=== PATIENT | male | born 1935 | race Caucasian/White ===

== ENCOUNTER 2022-02-25 14:06 | Inpatient (IN) | payer MEDICARE, OTHER ==
[~2022-02-25] VITALS: Ht 185.4 cm; Wt 125.8 kg
[2022-02-25] MEDS ORDERED: ASPI-618 PO (15:11)
[2022-02-25] MEDS ORDERED: NAPH1POW3 PO (15:11)
[2022-02-25] MEDS ORDERED: RIVA20TA PO (15:11)
[2022-02-25] MEDS ORDERED: MEMA10TA PO (15:11)
[2022-02-25] MEDS ORDERED: MAG30ORA PO (15:11)
[2022-02-25] MEDS ORDERED: MAGN400O6 PO (15:11)
[2022-02-25] MEDS ORDERED: FURO-152 PO (15:11)
[2022-02-25] MEDS ORDERED: METO50TA16 PO (15:11)
[2022-02-25] MEDS ORDERED: LOSA25TA3 PO (15:11)
[2022-02-25] MEDS ORDERED: PANT40TA2 PO (15:11)
[2022-02-25] MEDS ORDERED: ESCI5TAB PO (15:11)
[2022-02-25] MEDS ORDERED: DONE10TA11 PO (15:11)
[2022-02-25] MEDS ORDERED: METF-441 PO (15:11)
[2022-02-25] MEDS ORDERED: AZIT500V8 IV (15:12)
[2022-02-25] MEDS ORDERED: CEFT2VIA14 IV (15:12)
[2022-02-25] MEDS ORDERED: ONDA4VIA52 IV (17:22)
[2022-02-25] MEDS ORDERED: BLOO-668 IN (17:22)
[2022-02-25] MEDS ORDERED: ACET-2154 PO (17:22)
[2022-02-25] MEDS ORDERED: DEXTROSE 50% 50 ML DISP.SYRIN IV PRN (17:45)
[2022-02-25] MEDS ORDERED: HYDROCODONE/APAP 5-325MG TABLET PO PRN (17:45)
[2022-02-25 18:00] VITALS: BP 148/80
[2022-02-25] MEDS ORDERED: ACETAMINOPHEN 325 MG TABLET PO PRN (18:30)
[2022-02-25] MEDS ORDERED: ONDANSETRON HCL 4 MG TABLET PO PRN (18:30)
[2022-02-25] MEDS ORDERED: MAGNESIUM HYDROXIDE 30 ML LIQUID UDC PO PRN (18:30)
[2022-02-25] MEDS ORDERED: MAG HYDROX/AL HYDROX/SIMETH 30 ML LIQUID UDC PO PRN (18:30)
--- NOTE | 2022-02-25 18:31 | NUR ---
[facility] noted with congestion, wet cough, o2 saturation 94 at room air, noted with pitting edema to both upper and lower extremities, noted with redness to perineal area and to the buttocks.
[2022-02-25] MEDS: AZITHROMYCIN 250 MG TABLET PO SCH (19:14)
[2022-02-25] MEDS: MEMANTINE HCL 5 MG TABLET PO SCH (19:14)
[2022-02-25] MEDS: RIVAROXABAN 10 MG TABLET PO SCH (19:17)
[2022-02-25 20:00] VITALS: BP 166/81
[2022-02-25] MEDS: DONEPEZIL 10 MG TABLET PO SCH (20:18)
[2022-02-25] MEDS: BLOOD SUGAR DIAGNOSTIC 1 EACH STRIP VI SCH (20:18)
[2022-02-25] MEDS: CLOTRIMAZOLE 1% CREAM 30 GM TUBE TOP SCH (20:19)
--- NOTE | 2022-02-25 20:20 | NUR ---
BP 166/81. Denies any s/s of HTN. Informed MD about the BP. No new medication ordered just to monitor patient's BP. Will endorsed to AM nurse.
[2022-02-25] MEDS: INSULIN REGULAR, HUMAN 300 UNIT/3 ML VIAL SQ PRN (20:22)
[2022-02-25] MEDS ORDERED: BLOOD SUGAR DIAGNOSTIC 1 EACH STRIP VI SCH (21:00)
[2022-02-25] MEDS: NEUTRA PHOS PACKET PO SCH (22:00)
[2022-02-26 04:00] VITALS: BP 156/75
[2022-02-26] MEDS: BLOOD SUGAR DIAGNOSTIC 1 EACH STRIP VI SCH ×4 (06:35→20:31)
[2022-02-26] MEDS: NEUTRA PHOS PACKET PO SCH ×3 (06:36→21:46)
[2022-02-26] MEDS: PANTOPRAZOLE SODIUM 40 MG TABLET.DR PO SCH (06:36)
[2022-02-26 08:00] VITALS: BP 147/78
[2022-02-26] MEDS ORDERED: Medication Not On Formulary EA (Escitalopram Oxalate (Lexapro) 5 MG) PO SCH (09:00)
[2022-02-26] MEDS: FUROSEMIDE 20 MG TABLET PO SCH (09:27)
[2022-02-26] MEDS: LOSARTAN POTASSIUM 25 MG TABLET PO SCH (09:27)
[2022-02-26] MEDS: METFORMIN HCL 850 MG TABLET PO SCH ×2 (09:27→17:25)
[2022-02-26] MEDS: ASPIRIN EC 81 MG TABLET.DR PO SCH (09:27)
[2022-02-26] MEDS: ESCITALOPRAM OXALATE 10 MG TABLET PO SCH (09:28)
[2022-02-26] MEDS: CLOTRIMAZOLE 1% CREAM 30 GM TUBE TOP SCH (09:32)
[2022-02-26] MEDS: INSULIN REGULAR, HUMAN 300 UNIT/3 ML VIAL SQ PRN ×4 (09:40→20:32)
--- NOTE | 2022-02-26 14:00 | NUR ---
Remain AAOx4 [place] Islander Speaking with little Slovak. Admitted for Pneumonia. with some cough no SOB or respiratory distress noted at room air, continue on ATB therapy with Zithromax 500 mg PO no A/R noted . All needs attended. No acute distress noted. Will continue to monitor patient for comfort and safety. Incontinent of bowel and bladder. Uses urinal when voiding. No BM noted at this time. Kept comfortable.
[2022-02-26] MEDS: METOPROLOL TARTRATE 50 MG TABLET PO SCH ×2 (14:01→20:33)
[2022-02-26 16:00] VITALS: BP 144/82
[2022-02-26] MEDS ORDERED: RIVAROXABAN 10 MG TABLET PO SCH (17:00)
[2022-02-26] MEDS: RIVAROXABAN 10 MG TABLET PO SCH (17:27)
[2022-02-26] MEDS: MEMANTINE HCL 5 MG TABLET PO SCH (17:30)
[2022-02-26] MEDS: AZITHROMYCIN 250 MG TABLET PO SCH (17:40)
[2022-02-26] MEDS: methylPREDNISolone SOD SUCC 40 MG/ML VIAL IV SCH ×2 (19:21→20:42)
[2022-02-26 20:00] VITALS: BP 145/83
[2022-02-26] MEDS: DONEPEZIL 10 MG TABLET PO SCH (20:33)
[2022-02-26] MEDS: CLOTRIMAZOLE/BETAMET DIPROP CREAM 15 GM TUBE TOP SCH (20:34)
[2022-02-27] MEDS: LOSARTAN POTASSIUM 25 MG TABLET PO SCH (04:26)
--- NOTE | 2022-02-27 04:26 | NUR ---
Bp 171/82. Denies any s/s of HTN. Losartan potassium 25 mg 1 tab oral given earlier as scheduled for elevated BP. Will recheck after an hour. Will monitor.
[2022-02-27 04:31] VITALS: BP 171/82
[2022-02-27] MEDS: NEUTRA PHOS PACKET PO SCH ×3 (06:06→21:07)
[2022-02-27] MEDS: PANTOPRAZOLE SODIUM 40 MG TABLET.DR PO SCH (06:06)
[2022-02-27] MEDS: BLOOD SUGAR DIAGNOSTIC 1 EACH STRIP VI SCH ×4 (06:14→21:02)
--- NOTE | 2022-02-27 06:24 | NUR ---
BP rechecked 138/91. Chest congestion noted, Coughing non productive.
[2022-02-27 07:05] LABS: MEAN CORPUSCULAR HEMOGLOBIN 30.1 uug (23.8-33.4); PLATELET COUNT (AUTO) 184 K/uL (152-348)
[2022-02-27 07:21] LABS: MAGNESIUM 1.9 mg/dL (1.8-2.4); PHOSPHOROUS 3.7 mg/dL (2.5-4.9); POTASSIUM 4.8 mmol/L (3.5-5.1)
[2022-02-27 07:56] VITALS: BP 138/72
[2022-02-27] MEDS: INSULIN REGULAR, HUMAN 300 UNIT/3 ML VIAL SQ PRN ×4 (08:03→21:07)
[2022-02-27] MEDS: methylPREDNISolone SOD SUCC 40 MG/ML VIAL IV SCH (09:13)
[2022-02-27] MEDS: FUROSEMIDE 20 MG TABLET PO SCH (09:14)
[2022-02-27] MEDS: ASPIRIN EC 81 MG TABLET.DR PO SCH (09:14)
[2022-02-27] MEDS: ESCITALOPRAM OXALATE 10 MG TABLET PO SCH (09:14)
[2022-02-27] MEDS: METFORMIN HCL 850 MG TABLET PO SCH ×2 (09:14→17:45)
[2022-02-27] MEDS: METOPROLOL TARTRATE 50 MG TABLET PO SCH ×2 (09:15→20:47)
[2022-02-27] MEDS: CLOTRIMAZOLE/BETAMET DIPROP CREAM 15 GM TUBE TOP SCH ×2 (09:29→20:51)
--- NOTE | 2022-02-27 11:55 | NUR ---
Received patient resting in bed AAOx 3 Tristanian speaking with little Australian. Up in W/C with PT All needs attended. No acute distress noted, incontinent of bowel and bladder c/O of feeling constipated medicated with MOM as ordered. Uses urinal when voiding at times. All do Meds given as ordered. no c/o of pain, AccuStick at 1130 BS 448mg/dl at this time Insulin given as per sliding scale 10 units if > 400 and notified MD Alejo Celeste will continue to monitor closely, Kept comfortable.
[2022-02-27 16:04] VITALS: BP 168/69
[2022-02-27] MEDS: GLUCERNA SHAKE VANILLA 237 ML CAN PO SCH (17:53)
[2022-02-27] MEDS: MEMANTINE HCL 5 MG TABLET PO SCH (17:56)
[2022-02-27] MEDS: RIVAROXABAN 10 MG TABLET PO SCH (17:56)
[2022-02-27] MEDS: AZITHROMYCIN 250 MG TABLET PO SCH (17:57)
[2022-02-27 20:04] VITALS: BP 140/81
[2022-02-27] MEDS: DONEPEZIL 10 MG TABLET PO SCH (20:46)
[2022-02-27] MEDS ORDERED: methylPREDNISolone SOD SUCC 40 MG/ML VIAL IV SCH (21:00)
[2022-02-28 04:21] VITALS: BP 132/71
--- NOTE | 2022-02-28 05:03 | NUR ---
Patient slept on and off during the shift, chest congestion noted with episodes of non productive cough ,no complaint of pain, no SOB respiration even and unlabored sat 94% at room air. Compliant with medications.frequent visuals checks done, incontinent of bowel and bladder kept clean and dry Lotrisone cream applied as ordered.safety measures in place, bed in low position, alarms personnel analyst light and all frequent items needed it within reached.
[2022-02-28] MEDS: PANTOPRAZOLE SODIUM 40 MG TABLET.DR PO SCH (06:40)
[2022-02-28] MEDS: NEUTRA PHOS PACKET PO SCH ×3 (06:40→23:08)
[2022-02-28] MEDS: BLOOD SUGAR DIAGNOSTIC 1 EACH STRIP VI SCH ×4 (06:48→20:44)
[2022-02-28] MEDS: INSULIN REGULAR, HUMAN 300 UNIT/3 ML VIAL SQ PRN ×4 (08:44→20:49)
[2022-02-28 08:54] VITALS: BP 144/80
[2022-02-28] MEDS: ASPIRIN EC 81 MG TABLET.DR PO SCH (09:11)
[2022-02-28] MEDS: methylPREDNISolone SOD SUCC 40 MG/ML VIAL IV SCH (09:11)
[2022-02-28] MEDS: ESCITALOPRAM OXALATE 10 MG TABLET PO SCH (09:11)
[2022-02-28] MEDS: METOPROLOL TARTRATE 50 MG TABLET PO SCH ×2 (09:12→20:40)
[2022-02-28] MEDS: METFORMIN HCL 850 MG TABLET PO SCH ×2 (09:29→17:01)
[2022-02-28] MEDS: FUROSEMIDE 20 MG TABLET PO SCH (09:29)
[2022-02-28] MEDS: LOSARTAN POTASSIUM 25 MG TABLET PO SCH (09:30)
[2022-02-28] MEDS: CLOTRIMAZOLE/BETAMET DIPROP CREAM 15 GM TUBE TOP SCH ×2 (09:30→20:41)
[2022-02-28] MEDS: GLUCERNA SHAKE VANILLA 237 ML CAN PO SCH ×2 (09:30→16:55)
--- NOTE | 2022-02-28 10:16 | NUR ---
INDIVIDUALIZED PLAN OF CARE
[2022-02-28 15:44] VITALS: BP 147/77
[2022-02-28] MEDS: RIVAROXABAN 10 MG TABLET PO SCH (17:01)
[2022-02-28] MEDS: MEMANTINE HCL 5 MG TABLET PO SCH (17:03)
[2022-02-28] MEDS: AZITHROMYCIN 250 MG TABLET PO SCH (17:53)
--- NOTE | 2022-02-28 19:04 | NUR ---
no events noted during shift, patient is tolerating PT, OT well. no acute distress noted
[2022-02-28 20:04] VITALS: BP 135/71
[2022-02-28] MEDS: DONEPEZIL 10 MG TABLET PO SCH (20:40)
[2022-03-01 04:38] VITALS: BP 137/65
[2022-03-01] MEDS: NEUTRA PHOS PACKET PO SCH ×3 (06:26→21:28)
[2022-03-01] MEDS: PANTOPRAZOLE SODIUM 40 MG TABLET.DR PO SCH (06:27)
[2022-03-01] MEDS: BLOOD SUGAR DIAGNOSTIC 1 EACH STRIP VI SCH ×4 (06:31→21:01)
[2022-03-01 07:07] LABS: CREATININE 0.9 mg/dL (0.6-1.3); POTASSIUM 4.5 mmol/L (3.5-5.1)
[2022-03-01] MEDS: LOSARTAN POTASSIUM 25 MG TABLET PO SCH (08:17)
[2022-03-01] MEDS: GLUCERNA SHAKE VANILLA 237 ML CAN PO SCH ×2 (08:18→16:54)
[2022-03-01] MEDS: ESCITALOPRAM OXALATE 10 MG TABLET PO SCH (08:18)
[2022-03-01] MEDS: FUROSEMIDE 20 MG TABLET PO SCH (08:18)
[2022-03-01] MEDS: ASPIRIN EC 81 MG TABLET.DR PO SCH (08:18)
[2022-03-01] MEDS: METOPROLOL TARTRATE 50 MG TABLET PO SCH ×2 (08:18→20:52)
[2022-03-01] MEDS: INSULIN REGULAR, HUMAN 300 UNIT/3 ML VIAL SQ PRN ×4 (08:20→21:04)
[2022-03-01] MEDS: METFORMIN HCL 850 MG TABLET PO SCH ×2 (08:29→16:54)
[2022-03-01] MEDS: CLOTRIMAZOLE/BETAMET DIPROP CREAM 15 GM TUBE TOP SCH ×2 (08:29→20:53)
--- NOTE | 2022-03-01 08:30 | NUR ---
inserted 22g iv on left hand, good blood return noted. denies pain.
[2022-03-01] MEDS: methylPREDNISolone SOD SUCC 40 MG/ML VIAL IV SCH (08:42)
--- NOTE | 2022-03-01 09:17 | NUR ---
received pt in bed awake and oriented x2. no resp distress. denies pain. pitting edema noted more on right arm than left. pt is pleasant. bed at lowest and locked, siderails up call light in reach. needs attended. will cont to observe.
[2022-03-01] MEDS ORDERED: methylPREDNISolone 4 MG TABLET (DAY#1) PO ONE (11:30)
[2022-03-01] MEDS ORDERED: methylPREDNISolone 1 PACK TAB.DS.PK [4MG TAB] PO ONE (11:30)
[2022-03-01] MEDS ORDERED: methylPREDNISolone 4 MG TABLET (DAY#1 PC LUNCH) PO ONE (12:30)
[2022-03-01] MEDS: RIVAROXABAN 10 MG TABLET PO SCH (16:54)
[2022-03-01] MEDS: MEMANTINE HCL 5 MG TABLET PO SCH (17:07)
[2022-03-01] MEDS ORDERED: methylPREDNISolone 4 MG TABLET (DAY#1, PC DINNER) PO ONE (17:30)
[2022-03-01] MEDS: AZITHROMYCIN 250 MG TABLET PO SCH (17:53)
--- NOTE | 2022-03-01 18:08 | NUR ---
noted with intermittent productive cough, unable to cough out secretions. encouraged fluids as tolerated. no adverse reactions from atb zithromax noted. kept comfortable needs attended.
[2022-03-01 20:46] VITALS: BP 133/74
[2022-03-01] MEDS: DONEPEZIL 10 MG TABLET PO SCH (20:52)
[2022-03-01] MEDS ORDERED: methylPREDNISolone 4 MG TABLET (DAY#1, HS) PO ONE (21:00)
[2022-03-02 04:37] VITALS: BP 140/69
--- NOTE | 2022-03-02 05:29 | NUR ---
Pt slept throughout the night. HOB elevated. Complaint with medication and care. NPO status at midnight. No signs of acute distress. Call lights within reach. Safety measures maintained.
[2022-03-02] MEDS: NEUTRA PHOS PACKET PO SCH ×3 (06:00→21:12)
[2022-03-02] MEDS: PANTOPRAZOLE SODIUM 40 MG TABLET.DR PO SCH (06:06)
[2022-03-02] MEDS: BLOOD SUGAR DIAGNOSTIC 1 EACH STRIP VI SCH ×4 (06:30→20:56)
[2022-03-02] MEDS ORDERED: methylPREDNISolone 4 MG TABLET (DAY#2, ACB) PO ONE (07:30)
[2022-03-02 08:00] VITALS: BP 153/93
[2022-03-02] MEDS: METOPROLOL TARTRATE 50 MG TABLET PO SCH ×2 (09:00→20:51)
[2022-03-02] MEDS: GLUCERNA SHAKE VANILLA 237 ML CAN PO SCH ×2 (09:00→17:07)
[2022-03-02] MEDS: FUROSEMIDE 20 MG TABLET PO SCH (09:00)
[2022-03-02] MEDS: ESCITALOPRAM OXALATE 10 MG TABLET PO SCH (09:00)
[2022-03-02] MEDS: ASPIRIN EC 81 MG TABLET.DR PO SCH (09:00)
[2022-03-02] MEDS: LOSARTAN POTASSIUM 25 MG TABLET PO SCH (09:00)
[2022-03-02] MEDS: METFORMIN HCL 850 MG TABLET PO SCH ×2 (09:00→17:07)
[2022-03-02] MEDS: CLOTRIMAZOLE/BETAMET DIPROP CREAM 15 GM TUBE TOP SCH ×2 (09:34→20:53)
--- NOTE | 2022-03-02 09:45 | NUR ---
Pt remain NPO status since midnight all schedule 0900 Meds not given do to NPO as pr MD ordered . No signs of acute distress noted was pick by 2 OR nurses for EGD procedure with GI DR Fairbanks. Safety measures maintained.
--- NOTE | 2022-03-02 11:30 | NUR ---
Pt came back accompany by the OR nurse ORTIZ Plascencia4. EGD procedure with GI DR Fairbanks was done ,normal Duodenum and normal esophagus reported also PT had a. 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 Safety measures maintained.
[2022-03-02] MEDS: INSULIN REGULAR, HUMAN 300 UNIT/3 ML VIAL SQ PRN ×3 (12:07→21:10)
[2022-03-02] MEDS ORDERED: methylPREDNISolone 4 MG TABLET (DAY#2, PC LUNCH) PO ONE (12:30)
[2022-03-02 16:44] VITALS: BP 150/80
[2022-03-02] MEDS: RIVAROXABAN 10 MG TABLET PO SCH (17:11)
[2022-03-02] MEDS: MEMANTINE HCL 5 MG TABLET PO SCH (17:14)
[2022-03-02] MEDS ORDERED: methylPREDNISolone 4 MG TABLET (DAY#2, PC DINNER) PO ONE (17:30)
[2022-03-02 20:21] VITALS: BP 136/77
[2022-03-02] MEDS: DONEPEZIL 10 MG TABLET PO SCH (20:51)
[2022-03-02] MEDS ORDERED: methylPREDNISolone 4 MG TABLET (DAY#2, HS) PO ONE (21:00)
[2022-03-03 04:52] VITALS: BP 137/80
[2022-03-03] MEDS: BLOOD SUGAR DIAGNOSTIC 1 EACH STRIP VI SCH ×4 (05:55→20:31)
[2022-03-03] MEDS: PANTOPRAZOLE SODIUM 40 MG TABLET.DR PO SCH (05:56)
[2022-03-03] MEDS: NEUTRA PHOS PACKET PO SCH ×3 (05:56→21:47)
[2022-03-03] MEDS ORDERED: methylPREDNISolone 4 MG TABLET (DAY#3, ACB) PO ONE (07:30)
[2022-03-03 08:00] VITALS: BP 128/70
[2022-03-03] MEDS: ESCITALOPRAM OXALATE 10 MG TABLET PO SCH (09:17)
[2022-03-03] MEDS: FUROSEMIDE 20 MG TABLET PO SCH (09:17)
[2022-03-03] MEDS: ASPIRIN EC 81 MG TABLET.DR PO SCH (09:17)
[2022-03-03] MEDS: GLUCERNA SHAKE VANILLA 237 ML CAN PO SCH ×2 (09:20→17:14)
[2022-03-03] MEDS: LOSARTAN POTASSIUM 25 MG TABLET PO SCH (09:20)
[2022-03-03] MEDS: METOPROLOL TARTRATE 50 MG TABLET PO SCH ×2 (09:20→20:26)
[2022-03-03] MEDS: CLOTRIMAZOLE/BETAMET DIPROP CREAM 15 GM TUBE TOP SCH ×2 (09:21→20:27)
[2022-03-03] MEDS: INSULIN REGULAR, HUMAN 300 UNIT/3 ML VIAL SQ PRN ×4 (09:23→20:33)
[2022-03-03] MEDS ORDERED: INSULIN GLARGINE,HUM 300 UNITS/3 ML CARTRIDGE SQ SCH (09:30)
[2022-03-03] MEDS ORDERED: methylPREDNISolone 4 MG TABLET (DAY#3, PC LUNCH) PO ONE (12:30)
[2022-03-03 16:08] VITALS: BP 139/77
[2022-03-03] MEDS: MEMANTINE HCL 5 MG TABLET PO SCH (17:09)
[2022-03-03] MEDS: RIVAROXABAN 10 MG TABLET PO SCH (17:13)
[2022-03-03] MEDS ORDERED: methylPREDNISolone 4 MG TABLET (DAY#3, PC DINNER) PO ONE (17:30)
--- NOTE | 2022-03-03 19:42 | NUR ---
Patient seen by Dr. Vargas, update given to MD with order for CXR in am, Mucinex 600mg PO Q 12hrs x 3 days. Patient remains alert during the shift, denies any pain or discomfort, on O2 at 1.5 LPM via NC. Encouraged turning and repositioning every 2 hours but patient refused, saying its too much. Kept patient clean and comfortable.
[2022-03-03] MEDS ORDERED: REMEDY ESSENTIAL ZINC PASTE 113 GM TOP PRN (19:45)
[2022-03-03 20:00] VITALS: BP 139/61
[2022-03-03] MEDS: GUAIFENESIN LA 600 MG TABLET.SA PO SCH (20:26)
[2022-03-03] MEDS: DONEPEZIL 10 MG TABLET PO SCH (20:26)
[2022-03-03] MEDS ORDERED: methylPREDNISolone 4 MG TABLET (DAY#3, HS) PO ONE (21:00)
[2022-03-04 04:00] VITALS: BP 137/65
[2022-03-04] MEDS: PANTOPRAZOLE SODIUM 40 MG TABLET.DR PO SCH (06:27)
[2022-03-04] MEDS: NEUTRA PHOS PACKET PO SCH ×3 (06:27→21:30)
[2022-03-04] MEDS: BLOOD SUGAR DIAGNOSTIC 1 EACH STRIP VI SCH ×4 (06:28→21:34)
[2022-03-04 06:50] LABS: HEMATOCRIT 39.9 % (36.7-47.1); MEAN CORPUSCULAR HEMOGLOBIN 29.9 uug (23.8-33.4); MEAN CORPUSCULAR VOLUME 87.7 fL (73.0-96.2); PLATELET COUNT (AUTO) 191 K/uL (152-348)
[2022-03-04 07:10] LABS: THYROID STIMULATING HORMONE 0.533 mIU/mL (0.358-3.740)
[2022-03-04] MEDS ORDERED: methylPREDNISolone 4 MG TABLET (DAY#4, ACB) PO ONE (07:30)
[2022-03-04 07:49] LABS: BILIRUBIN,TOTAL 0.5 mg/dL (0.2-1.0); CREATININE 0.8 mg/dL (0.6-1.3); MAGNESIUM 1.6 mg/dL (1.8-2.4); PHOSPHOROUS 3.3 mg/dL (2.5-4.9); POTASSIUM 4.6 mmol/L (3.5-5.1)
[2022-03-04 08:00] VITALS: BP 153/93
[2022-03-04] MEDS: FUROSEMIDE 20 MG TABLET PO SCH (08:25)
[2022-03-04] MEDS: ESCITALOPRAM OXALATE 10 MG TABLET PO SCH (08:25)
[2022-03-04] MEDS: ASPIRIN EC 81 MG TABLET.DR PO SCH (08:25)
[2022-03-04] MEDS: GUAIFENESIN LA 600 MG TABLET.SA PO SCH ×2 (08:26→21:29)
[2022-03-04] MEDS: METOPROLOL TARTRATE 50 MG TABLET PO SCH ×2 (08:28→21:28)
[2022-03-04] MEDS: LOSARTAN POTASSIUM 25 MG TABLET PO SCH (08:29)
[2022-03-04] MEDS: GLUCERNA SHAKE VANILLA 237 ML CAN PO SCH ×2 (08:32→17:44)
[2022-03-04] MEDS: CLOTRIMAZOLE/BETAMET DIPROP CREAM 15 GM TUBE TOP SCH ×2 (08:32→21:29)
[2022-03-04] MEDS: INSULIN REGULAR, HUMAN 300 UNIT/3 ML VIAL SQ PRN ×4 (08:49→21:46)
[2022-03-04] MEDS ORDERED: MAGNESIUM OXIDE 400 MG TABLET PO ONE (09:00)
--- NOTE | 2022-03-04 10:17 | NUR ---
INTERDISCIPLINARY TEAM CONFERENCE
[2022-03-04] MEDS ORDERED: methylPREDNISolone 4 MG TABLET (DAY#4, PC LUNCH) PO ONE (12:30)
[2022-03-04 16:02] VITALS: BP 117/68
[2022-03-04] MEDS: MEMANTINE HCL 5 MG TABLET PO SCH (17:42)
[2022-03-04] MEDS: RIVAROXABAN 10 MG TABLET PO SCH (17:43)
--- NOTE | 2022-03-04 19:15 | NUR ---
Received patient on bed, awake, alert x2-3, no shortness of breath noted, with occasional productive cough noted, no complaint of pain. Safety precautions provided, call light placed within reach.
[2022-03-04 20:00] VITALS: BP 143/61
[2022-03-04] MEDS ORDERED: INSULIN GLARGINE,HUM 300 UNITS/3 ML CARTRIDGE SQ SCH (21:00)
[2022-03-04] MEDS ORDERED: methylPREDNISolone 4 MG TABLET (DAY#4, HS) PO ONE (21:00)
[2022-03-04] MEDS: DONEPEZIL 10 MG TABLET PO SCH (21:27)
[2022-03-05 04:00] VITALS: BP 164/65
--- NOTE | 2022-03-05 05:44 | NUR ---
Slept well, repositioned for comfort, No complaint of pain. Diaper changed,creams applied at affected area, redness still noted. Patient in fair condition.
[2022-03-05] MEDS: NEUTRA PHOS PACKET PO SCH ×3 (06:20→20:59)
[2022-03-05] MEDS: LOSARTAN POTASSIUM 25 MG TABLET PO SCH (06:21)
[2022-03-05] MEDS: PANTOPRAZOLE SODIUM 40 MG TABLET.DR PO SCH ×2 (06:22→16:47)
[2022-03-05] MEDS: BLOOD SUGAR DIAGNOSTIC 1 EACH STRIP VI SCH ×4 (06:23→20:46)
[2022-03-05] MEDS ORDERED: methylPREDNISolone 4 MG TABLET (DAY#5, ACB) PO ONE (07:30)
[2022-03-05 07:54] VITALS: BP 145/85
[2022-03-05] MEDS: GUAIFENESIN LA 600 MG TABLET.SA PO SCH ×2 (08:52→20:47)
[2022-03-05] MEDS: ESCITALOPRAM OXALATE 10 MG TABLET PO SCH (08:52)
[2022-03-05] MEDS: GLUCERNA SHAKE VANILLA 237 ML CAN PO SCH ×2 (08:52→17:03)
[2022-03-05] MEDS: ASPIRIN EC 81 MG TABLET.DR PO SCH (08:52)
[2022-03-05] MEDS: FUROSEMIDE 20 MG TABLET PO SCH (08:52)
[2022-03-05] MEDS: METOPROLOL TARTRATE 50 MG TABLET PO SCH ×2 (08:53→20:46)
[2022-03-05] MEDS: CLOTRIMAZOLE/BETAMET DIPROP CREAM 15 GM TUBE TOP SCH ×2 (08:54→20:58)
[2022-03-05] MEDS: INSULIN REGULAR, HUMAN 300 UNIT/3 ML VIAL SQ PRN ×4 (10:24→20:51)
[2022-03-05 15:06] VITALS: BP 134/74
[2022-03-05] MEDS: AMOXIcillin 500 MG CAPSULE PO SCH (16:46)
[2022-03-05] MEDS: RIVAROXABAN 10 MG TABLET PO SCH (16:50)
[2022-03-05] MEDS: MEMANTINE HCL 5 MG TABLET PO SCH (17:00)
[2022-03-05] MEDS ORDERED: INSULIN REGULAR, HUMAN 300 UNIT/3 ML VIAL SQ ONE (17:00)
[2022-03-05] MEDS: CLARITHROMYCIN 500 MG TABLET PO SCH (17:03)
--- NOTE | 2022-03-05 17:21 | NUR ---
Blood sugar before dinner was 401, given 10 unit Humulin R insulin SQ per sliding scale. Notified Dr. Brooks with order for extra 6 units of Humulin R insulin SQ x 1 dose and increase Lantus to 25units SQ HS. Order carried out.
--- NOTE | 2022-03-05 18:41 | NUR ---
Patient remains alert, oriented x 3, not in any form of distress on room air. He denies any pain or discomfort. Perineal care done. Turned and repositioned every 2 hours. Assisted with his needs promptly. Call light and frequently used items placed within reach.
[2022-03-05 20:00] VITALS: BP 139/60
[2022-03-05] MEDS: DONEPEZIL 10 MG TABLET PO SCH (20:46)
[2022-03-05] MEDS: INSULIN GLARGINE,HUM 300 UNITS/3 ML CARTRIDGE SQ SCH (20:50)
[2022-03-05] MEDS ORDERED: methylPREDNISolone 4 MG TABLET (DAY#5, HS) PO ONE (21:00)
[2022-03-06 04:00] VITALS: BP 140/77
[2022-03-06] MEDS: PANTOPRAZOLE SODIUM 40 MG TABLET.DR PO SCH ×2 (05:31→17:20)
[2022-03-06] MEDS: NEUTRA PHOS PACKET PO SCH ×3 (05:31→21:02)
[2022-03-06] MEDS: BLOOD SUGAR DIAGNOSTIC 1 EACH STRIP VI SCH ×4 (05:39→23:35)
[2022-03-06] MEDS ORDERED: methylPREDNISolone 4 MG TABLET (DAY#6, ACB) PO ONE (07:30)
[2022-03-06 07:55] VITALS: BP 146/68
[2022-03-06] MEDS: CLARITHROMYCIN 500 MG TABLET PO SCH ×2 (09:04→17:24)
[2022-03-06] MEDS: METOPROLOL TARTRATE 50 MG TABLET PO SCH ×2 (09:05→20:35)
[2022-03-06] MEDS: AMOXIcillin 500 MG CAPSULE PO SCH ×2 (09:05→17:21)
[2022-03-06] MEDS: ASPIRIN EC 81 MG TABLET.DR PO SCH (09:06)
[2022-03-06] MEDS: GUAIFENESIN LA 600 MG TABLET.SA PO SCH (09:06)
[2022-03-06] MEDS: LOSARTAN POTASSIUM 25 MG TABLET PO SCH (09:06)
[2022-03-06] MEDS: ESCITALOPRAM OXALATE 10 MG TABLET PO SCH (09:06)
[2022-03-06] MEDS: GLUCERNA SHAKE VANILLA 237 ML CAN PO SCH ×2 (09:07→17:22)
[2022-03-06] MEDS: CLOTRIMAZOLE/BETAMET DIPROP CREAM 15 GM TUBE TOP SCH ×2 (09:07→20:39)
[2022-03-06] MEDS: FUROSEMIDE 20 MG TABLET PO SCH (09:07)
[2022-03-06] MEDS: INSULIN REGULAR, HUMAN 300 UNIT/3 ML VIAL SQ PRN ×3 (11:46→23:40)
[2022-03-06 16:00] VITALS: BP 138/69
[2022-03-06] MEDS: MEMANTINE HCL 5 MG TABLET PO SCH (17:21)
[2022-03-06] MEDS: RIVAROXABAN 10 MG TABLET PO SCH (17:22)
[2022-03-06] MEDS ORDERED: DEXTROSE 50% 50 ML DISP.SYRIN IV PRN (19:00)
[2022-03-06 20:00] VITALS: BP 140/70
[2022-03-06] MEDS: DONEPEZIL 10 MG TABLET PO SCH (20:34)
[2022-03-06] MEDS: INSULIN GLARGINE,HUM 300 UNITS/3 ML CARTRIDGE SQ SCH (20:42)
[2022-03-07 04:21] VITALS: BP 130/85
--- NOTE | 2022-03-07 05:14 | NUR ---
Awake alert and oriented x3-4 . All needs attended. VSS. Kept comfortable. Generalized edema noted. On continous PEG tube of Jevity @ 55 cc/hr Tolerated well. Left forearm midline intact flushed and patent IV ABT given as scheduled. Needs attended. Had a temp earlier of 102.2 Tylenol given and ice packs applied to axilla, temp 97.5 Encourage po fluids and compliant about it. Ramey catheter intact draining yellow urine. No acute distress noted. Addendum: 03/07/22 at 0633 by DEREK ESPINO RN Awake alert and oriented x3-4 . All needs attended. VSS. Kept comfortable. Generalized edema noted. On continous PEG tube of Jevity @ 55 cc/hr Tolerated well. Left forearm midline intact flushed and patent IV ABT given as scheduled. Needs attended. Had a temp earlier of 102.2 Tylenol given and ice packs applied to axilla, temp 97.5 Encourage po fluids charting in error wrong patient Addendum: 03/07/22 at 0634 by DEREK ESPINO RN Awake alert and oriented x3-4 . All needs attended. VSS. Kept comfortable. Generalized edema noted. On continous PEG tube of Jevity @ 55 cc/hr Tolerated well. Left forearm midline intact flushed and patent IV ABT given as scheduled. Needs attended. Had a temp earlier of 102.2 Tylenol given and ice packs applied to axilla, temp 97.5 Encourage po fluids charting in error Addendum: 03/07/22 at 0635 by DEREK ESPINO RN Awake alert and oriented x3-4 . All needs attended. VSS. Kept comfortable. Generalized edema noted. On continous PEG tube of Jevity @ 55 cc/hr Tolerated well. Left forearm midline intact flushed and patent IV ABT given as scheduled. Needs attended. Had a temp earlier of 102.2 Tylenol given and ice packs applied to axilla, temp 97.5 Encourage po fluids and compliant about it. Ramey catheter intact draining yellow urine. No acute distress noted. Addendum: 03/07/22 at 0633 by DEREK ESPINO RN Awake alert and oriented x3-4 . All needs attended. VSS. Kept comfortable. Generalized edema noted. On continous PEG tube of Jevity @ 55 cc/hr Tolerated well. Left forearm midline intact flushed and patent IV ABT given as scheduled. Needs attended. Had a temp earlier of 102.2 Tylenol given and ice packs applied to axilla, temp 97.5 Encourage po fluids charting in error wrong patient Addendum: 03/07/22 at 0634 by DEREK ESPINO RN Awake alert and oriented x3-4 . All needs attended. VSS. Kept comfortable. Generalized edema noted. On continous PEG tube of Jevity @ 55 cc/hr Tolerated well. Left forearm midline intact flushed and patent IV ABT given as scheduled. Needs attended. Had a temp earlier of 102.2 Tylenol given and ice packs applied to axilla, temp 97.5 Encourage po fluids charting in error Addendum: 03/07/22 at 0641 by DEREK ESPINO RN error Addendum: 03/07/22 at 0643 by DEREK ESPINO RN Awake alert and oriented x3-4 . All needs attended. VSS. Kept comfortable. Generalized edema noted. On continous PEG tube of Jevity @ 55 cc/hr Tolerated well. Left forearm midline intact flushed and patent IV ABT given as scheduled. Needs attended. Had a temp earlier of 102.2 Tylenol given and ice packs applied to axilla, temp 97.5 Encourage po fluids charting in error
[2022-03-07] MEDS: NEUTRA PHOS PACKET PO SCH ×3 (05:41→21:12)
[2022-03-07] MEDS: BLOOD SUGAR DIAGNOSTIC 1 EACH STRIP VI SCH ×4 (05:49→23:45)
[2022-03-07] MEDS: INSULIN REGULAR, HUMAN 300 UNIT/3 ML VIAL SQ PRN ×3 (05:50→23:53)
[2022-03-07] MEDS: PANTOPRAZOLE SODIUM 40 MG TABLET.DR PO SCH ×2 (06:05→17:35)
[2022-03-07 06:37] LABS: HEMATOCRIT 43.6 % (36.7-47.1); MEAN CORPUSCULAR HEMOGLOBIN 29.9 uug (23.8-33.4); MEAN CORPUSCULAR VOLUME 87.5 fL (73.0-96.2); PLATELET COUNT (AUTO) 175 K/uL (152-348)
[2022-03-07 06:42] LABS: NEUTROPHILS % (MANUAL) 0 % (42-75)
[2022-03-07 06:47] LABS: CREATININE 0.8 mg/dL (0.6-1.3)
[2022-03-07 08:00] VITALS: BP 116/69
[2022-03-07] MEDS: LOSARTAN POTASSIUM 25 MG TABLET PO SCH (08:37)
[2022-03-07] MEDS: AMOXIcillin 500 MG CAPSULE PO SCH ×2 (08:37→17:23)
[2022-03-07] MEDS: FUROSEMIDE 20 MG TABLET PO SCH (08:37)
[2022-03-07] MEDS: CLARITHROMYCIN 500 MG TABLET PO SCH ×2 (08:37→17:23)
[2022-03-07] MEDS: ASPIRIN EC 81 MG TABLET.DR PO SCH (08:37)
[2022-03-07] MEDS: ESCITALOPRAM OXALATE 10 MG TABLET PO SCH (08:37)
[2022-03-07] MEDS: METOPROLOL TARTRATE 50 MG TABLET PO SCH ×2 (08:37→21:11)
[2022-03-07] MEDS: CLOTRIMAZOLE/BETAMET DIPROP CREAM 15 GM TUBE TOP SCH ×2 (08:38→21:12)
[2022-03-07] MEDS: GLUCERNA SHAKE VANILLA 237 ML CAN PO SCH ×2 (08:38→17:24)
[2022-03-07 16:14] VITALS: BP 102/68
[2022-03-07] MEDS: MEMANTINE HCL 5 MG TABLET PO SCH (17:23)
[2022-03-07] MEDS: RIVAROXABAN 10 MG TABLET PO SCH (17:36)
--- NOTE | 2022-03-07 19:15 | NUR ---
Received patient on bed, awake, no shortness of breath noted, productive cough noted, patient able to cough out the secretions. No complaint of pain. Safety precautions provided, call light placed within reach.
[2022-03-07 20:52] VITALS: BP 132/83
[2022-03-07] MEDS: DONEPEZIL 10 MG TABLET PO SCH (21:10)
[2022-03-07] MEDS: INSULIN GLARGINE,HUM 300 UNITS/3 ML CARTRIDGE SQ SCH (21:25)
--- NOTE | 2022-03-08 03:00 | NUR ---
Patient with frequent productive cough noted, O2 saturation at 95%, patient requested for O2 at 2L via NC for comfort only. Repositioned for comfort. All medications given as ordered.
[2022-03-08 04:38] VITALS: BP 108/78
[2022-03-08] MEDS: BLOOD SUGAR DIAGNOSTIC 1 EACH STRIP VI SCH ×3 (06:34→17:28)
[2022-03-08] MEDS: NEUTRA PHOS PACKET PO SCH ×3 (06:34→21:04)
[2022-03-08] MEDS: PANTOPRAZOLE SODIUM 40 MG TABLET.DR PO SCH ×2 (06:54→17:31)
[2022-03-08 08:20] VITALS: BP 113/69
[2022-03-08] MEDS: METOPROLOL TARTRATE 50 MG TABLET PO SCH ×2 (09:13→20:53)
[2022-03-08] MEDS: LOSARTAN POTASSIUM 25 MG TABLET PO SCH (09:13)
[2022-03-08] MEDS: AMOXIcillin 500 MG CAPSULE PO SCH ×2 (09:13→17:32)
[2022-03-08] MEDS: ASPIRIN EC 81 MG TABLET.DR PO SCH (09:14)
[2022-03-08] MEDS: CLARITHROMYCIN 500 MG TABLET PO SCH ×2 (09:14→17:32)
[2022-03-08] MEDS: ESCITALOPRAM OXALATE 10 MG TABLET PO SCH (09:14)
[2022-03-08] MEDS: FUROSEMIDE 20 MG TABLET PO SCH (09:15)
[2022-03-08] MEDS: GLUCERNA SHAKE VANILLA 237 ML CAN PO SCH ×2 (09:15→17:32)
[2022-03-08] MEDS: CLOTRIMAZOLE/BETAMET DIPROP CREAM 15 GM TUBE TOP SCH ×2 (09:16→20:55)
[2022-03-08 15:55] VITALS: BP 129/63
[2022-03-08] MEDS: MEMANTINE HCL 5 MG TABLET PO SCH (17:32)
[2022-03-08] MEDS: RIVAROXABAN 10 MG TABLET PO SCH (17:33)
[2022-03-08] MEDS: INSULIN REGULAR, HUMAN 300 UNIT/3 ML VIAL SQ PRN (17:35)
--- NOTE | 2022-03-08 19:15 | NUR ---
Received patient on bed, awake, no shortness of breath noted, with O2 at 2L via NC, with frequent productive cough noted, patient able to cough out the secretions. No complaint of pain. Safety precautions provided, call light placed within reach.
[2022-03-08 20:18] VITALS: BP 126/60
[2022-03-08] MEDS: DONEPEZIL 10 MG TABLET PO SCH (20:52)
[2022-03-08] MEDS: INSULIN GLARGINE,HUM 300 UNITS/3 ML CARTRIDGE SQ SCH (21:04)
[2022-03-09] MEDS: BLOOD SUGAR DIAGNOSTIC 1 EACH STRIP VI SCH ×5 (00:02→23:56)
[2022-03-09 04:18] VITALS: BP 107/67
--- NOTE | 2022-03-09 05:40 | NUR ---
Patient slept well, O2 saturation 97.9% with oxygen at 2L via NC. Patient requested to keep the oxygen on for his comfort when coughing. Not in labored breathing. No complaint of pain. Patient in fair condition.
[2022-03-09] MEDS: PANTOPRAZOLE SODIUM 40 MG TABLET.DR PO SCH ×2 (06:08→16:55)
[2022-03-09] MEDS: NEUTRA PHOS PACKET PO SCH ×3 (06:09→21:30)
--- NOTE | 2022-03-09 07:15 | NUR ---
RECEIVED IN BED AWAKE ALERT AND VERBALLY RESPONSIVE CURRENTLY HAS O2 AT 2L/M BY NASAL CANULA WITH NO SOB AT THIS TIME NOTED WITH OCASSIONAL COUGH EPISODES NO S/S OF HYPO/HYPERGLYCEMIC REACTIONS AT THIS TIME CALL LIGHTS AND PERSONAL BELONGINGS ARE WITHIN EASY REACH MADE COMFORTABLE AND WILL CONTINUE TO OBSERVE.
[2022-03-09] MEDS: ESCITALOPRAM OXALATE 10 MG TABLET PO SCH (08:27)
[2022-03-09] MEDS: CLARITHROMYCIN 500 MG TABLET PO SCH ×2 (08:28→16:59)
[2022-03-09] MEDS: FUROSEMIDE 20 MG TABLET PO SCH (08:28)
[2022-03-09] MEDS: AMOXIcillin 500 MG CAPSULE PO SCH ×2 (08:28→16:55)
[2022-03-09] MEDS: ASPIRIN EC 81 MG TABLET.DR PO SCH (08:28)
[2022-03-09] MEDS: LOSARTAN POTASSIUM 25 MG TABLET PO SCH (08:29)
[2022-03-09] MEDS: METOPROLOL TARTRATE 50 MG TABLET PO SCH ×2 (08:29→21:25)
[2022-03-09] MEDS: CLOTRIMAZOLE/BETAMET DIPROP CREAM 15 GM TUBE TOP SCH ×2 (08:30→21:30)
[2022-03-09] MEDS: GLUCERNA SHAKE VANILLA 237 ML CAN PO SCH ×2 (08:30→17:14)
[2022-03-09 08:39] VITALS: BP 135/79
[2022-03-09] MEDS: INSULIN REGULAR, HUMAN 300 UNIT/3 ML VIAL SQ PRN ×4 (11:57→23:59)
[2022-03-09 16:34] VITALS: BP 154/66
[2022-03-09] MEDS: MEMANTINE HCL 5 MG TABLET PO SCH (17:11)
[2022-03-09] MEDS: RIVAROXABAN 10 MG TABLET PO SCH (17:12)
--- NOTE | 2022-03-09 18:00 | NUR ---
REMAINS CONGESTED BUT ABLE TO EXPECTORARTE PHLEGM REMAIN ON ATB ORDERED WITH NO ADVERSE OR ALLERGIC REACTIONS AT THIS TIME WILL CONTINUE TO OBSERVE.
[2022-03-09 20:00] VITALS: BP 138/81
[2022-03-09] MEDS: DONEPEZIL 10 MG TABLET PO SCH (21:24)
[2022-03-09] MEDS: INSULIN GLARGINE,HUM 300 UNITS/3 ML CARTRIDGE SQ SCH (21:30)
[2022-03-10 04:00] VITALS: BP 140/80
[2022-03-10] MEDS: BLOOD SUGAR DIAGNOSTIC 1 EACH STRIP VI SCH ×3 (06:00→17:29)
[2022-03-10] MEDS: INSULIN REGULAR, HUMAN 300 UNIT/3 ML VIAL SQ PRN ×3 (06:02→17:15)
[2022-03-10] MEDS: NEUTRA PHOS PACKET PO SCH ×3 (06:02→21:02)
[2022-03-10] MEDS: PANTOPRAZOLE SODIUM 40 MG TABLET.DR PO SCH ×2 (06:03→17:05)
[2022-03-10 07:00] LABS: CREATININE 0.7 mg/dL (0.6-1.3)
[2022-03-10 07:32] VITALS: BP 147/73
[2022-03-10] MEDS: CLARITHROMYCIN 500 MG TABLET PO SCH ×2 (09:16→17:05)
[2022-03-10] MEDS: ESCITALOPRAM OXALATE 10 MG TABLET PO SCH (09:16)
[2022-03-10] MEDS: AMOXIcillin 500 MG CAPSULE PO SCH ×2 (09:16→17:06)
[2022-03-10] MEDS: ASPIRIN EC 81 MG TABLET.DR PO SCH (09:16)
[2022-03-10] MEDS: FUROSEMIDE 20 MG TABLET PO SCH (09:16)
[2022-03-10] MEDS: METOPROLOL TARTRATE 50 MG TABLET PO SCH ×2 (09:17→21:02)
[2022-03-10] MEDS: GLUCERNA SHAKE VANILLA 237 ML CAN PO SCH ×2 (09:17→17:29)
[2022-03-10] MEDS: LOSARTAN POTASSIUM 25 MG TABLET PO SCH (09:17)
[2022-03-10] MEDS: CLOTRIMAZOLE/BETAMET DIPROP CREAM 15 GM TUBE TOP SCH ×2 (09:18→21:09)
[2022-03-10 15:57] VITALS: BP 159/72
[2022-03-10] MEDS: MEMANTINE HCL 5 MG TABLET PO SCH (17:05)
[2022-03-10] MEDS: RIVAROXABAN 10 MG TABLET PO SCH (17:13)
--- NOTE | 2022-03-10 18:10 | NUR ---
Blood sugar was 414, gave 20 units regular insulin per sliding scale, notified Dr. Ramirez with no new order. Patient remains alert, not in any form of distress, tolerating room air. No complain of any pain or discomfort. He is compliant with medications and care. Needs attended to promptly. Turned and repositioned every 2 hours. Kept clean and comfortable. Call light and frequently used items placed within reach.
[2022-03-10 20:51] VITALS: BP 135/69
[2022-03-10] MEDS: DONEPEZIL 10 MG TABLET PO SCH (21:01)
[2022-03-10] MEDS: INSULIN GLARGINE,HUM 300 UNITS/3 ML CARTRIDGE SQ SCH (21:08)
[2022-03-11] MEDS: BLOOD SUGAR DIAGNOSTIC 1 EACH STRIP VI SCH ×4 (00:11→17:41)
[2022-03-11] MEDS: INSULIN REGULAR, HUMAN 300 UNIT/3 ML VIAL SQ PRN ×3 (00:13→17:05)
[2022-03-11 04:15] VITALS: BP 131/73
[2022-03-11] MEDS: NEUTRA PHOS PACKET PO SCH ×3 (05:38→21:13)
[2022-03-11] MEDS: PANTOPRAZOLE SODIUM 40 MG TABLET.DR PO SCH ×2 (05:38→17:04)
[2022-03-11 07:30] VITALS: BP 159/93
[2022-03-11] MEDS: AMOXIcillin 500 MG CAPSULE PO SCH ×2 (08:22→17:00)
[2022-03-11] MEDS: CLARITHROMYCIN 500 MG TABLET PO SCH ×2 (08:22→17:00)
[2022-03-11] MEDS: FUROSEMIDE 20 MG TABLET PO SCH (08:23)
[2022-03-11] MEDS: ASPIRIN EC 81 MG TABLET.DR PO SCH (08:23)
[2022-03-11] MEDS: METOPROLOL TARTRATE 50 MG TABLET PO SCH ×2 (08:23→20:33)
[2022-03-11] MEDS: LOSARTAN POTASSIUM 25 MG TABLET PO SCH (08:23)
[2022-03-11] MEDS: ESCITALOPRAM OXALATE 10 MG TABLET PO SCH (08:24)
[2022-03-11] MEDS: GLUCERNA SHAKE VANILLA 237 ML CAN PO SCH ×2 (08:24→17:41)
[2022-03-11] MEDS: CLOTRIMAZOLE/BETAMET DIPROP CREAM 15 GM TUBE TOP SCH ×2 (08:24→20:33)
--- NOTE | 2022-03-11 11:31 | NUR ---
INTERDISCIPLINARY TEAM CONFERENCE
[2022-03-11 15:44] VITALS: BP 146/87
[2022-03-11] MEDS: MEMANTINE HCL 5 MG TABLET PO SCH (17:00)
[2022-03-11] MEDS: RIVAROXABAN 10 MG TABLET PO SCH (17:04)
[2022-03-11 20:00] VITALS: BP 125/70
[2022-03-11] MEDS: DONEPEZIL 10 MG TABLET PO SCH (20:33)
[2022-03-11] MEDS: INSULIN GLARGINE,HUM 300 UNITS/3 ML CARTRIDGE SQ SCH (21:11)
[2022-03-12] MEDS: BLOOD SUGAR DIAGNOSTIC 1 EACH STRIP VI SCH ×5 (00:58→23:45)
[2022-03-12] MEDS: INSULIN REGULAR, HUMAN 300 UNIT/3 ML VIAL SQ PRN ×5 (00:59→23:46)
[2022-03-12] MEDS ORDERED: TEMAZEPAM 15 MG CAPSULE PO PRN (01:15)
[2022-03-12 04:00] VITALS: BP 140/70
[2022-03-12] MEDS: NEUTRA PHOS PACKET PO SCH ×3 (05:48→21:06)
[2022-03-12] MEDS: PANTOPRAZOLE SODIUM 40 MG TABLET.DR PO SCH ×2 (06:03→16:17)
--- NOTE | 2022-03-12 06:27 | NUR ---
PATIENT SLEPT WELL THROUGHOUT THE NIGHT. NO C/O PAIN AT THIS TIME. BED ALARM ON. CALL LIGHT IN REACH. ALL NEEDS ATTENDED. WILL CONTINUE TO MONITOR AND ASSESS.
[2022-03-12 08:00] VITALS: BP 131/90
[2022-03-12] MEDS: AMOXIcillin 500 MG CAPSULE PO SCH ×2 (08:10→16:18)
[2022-03-12] MEDS: ASPIRIN EC 81 MG TABLET.DR PO SCH (08:10)
[2022-03-12] MEDS: GLUCERNA SHAKE VANILLA 237 ML CAN PO SCH ×2 (08:10→16:18)
[2022-03-12] MEDS: LOSARTAN POTASSIUM 25 MG TABLET PO SCH (08:10)
[2022-03-12] MEDS: ESCITALOPRAM OXALATE 10 MG TABLET PO SCH (08:10)
[2022-03-12] MEDS: METOPROLOL TARTRATE 50 MG TABLET PO SCH ×2 (08:16→20:08)
[2022-03-12] MEDS: CLARITHROMYCIN 500 MG TABLET PO SCH ×2 (08:16→16:18)
[2022-03-12] MEDS: FUROSEMIDE 20 MG TABLET PO SCH (08:16)
[2022-03-12] MEDS: CLOTRIMAZOLE/BETAMET DIPROP CREAM 15 GM TUBE TOP SCH ×2 (08:30→20:19)
[2022-03-12 11:42] LABS: HEMATOCRIT 41.6 % (36.7-47.1); MEAN CORPUSCULAR HEMOGLOBIN 30.2 uug (23.8-33.4); MEAN CORPUSCULAR VOLUME 88.2 fL (73.0-96.2); PLATELET COUNT (AUTO) 135 K/uL (152-348)
[2022-03-12 11:45] LABS: CREATININE 0.8 mg/dL (0.6-1.3); POTASSIUM 4.7 mmol/L (3.5-5.1)
[2022-03-12 13:11] LABS: NEUTROPHILS % (MANUAL) 0 % (42-75)
[2022-03-12 16:00] VITALS: BP 143/81
[2022-03-12] MEDS: RIVAROXABAN 10 MG TABLET PO SCH (16:18)
[2022-03-12] MEDS: MEMANTINE HCL 5 MG TABLET PO SCH (17:15)
[2022-03-12] MEDS: DONEPEZIL 10 MG TABLET PO SCH (20:07)
[2022-03-12] MEDS: INSULIN GLARGINE,HUM 300 UNITS/3 ML CARTRIDGE SQ SCH (20:13)
[2022-03-12 20:41] VITALS: BP 162/86
[2022-03-13 04:26] VITALS: BP 143/82
[2022-03-13] MEDS: NEUTRA PHOS PACKET PO SCH (05:49)
[2022-03-13] MEDS: BLOOD SUGAR DIAGNOSTIC 1 EACH STRIP VI SCH ×2 (05:54→11:33)
[2022-03-13] MEDS: PANTOPRAZOLE SODIUM 40 MG TABLET.DR PO SCH (06:00)
--- NOTE | 2022-03-13 06:16 | NUR ---
Pt slept well throughout the night, easily arousable for care. Due medications given on time and tolerated well. Accucheck done, latest BS 128. Latest BP 143/82. No significant changes noted. All needs attended. Call light placed within reach. Will endorse to next shift.
[2022-03-13 07:39] VITALS: BP 152/81
[2022-03-13] MEDS: AMOXIcillin 500 MG CAPSULE PO SCH (08:27)
[2022-03-13] MEDS: LOSARTAN POTASSIUM 25 MG TABLET PO SCH (08:28)
[2022-03-13] MEDS: ASPIRIN EC 81 MG TABLET.DR PO SCH (08:28)
[2022-03-13] MEDS: ESCITALOPRAM OXALATE 10 MG TABLET PO SCH (08:28)
[2022-03-13] MEDS: FUROSEMIDE 20 MG TABLET PO SCH (08:28)
[2022-03-13 08:29] VITALS: BP 152/81
[2022-03-13] MEDS: GLUCERNA SHAKE VANILLA 237 ML CAN PO SCH (08:29)
[2022-03-13] MEDS: CLARITHROMYCIN 500 MG TABLET PO SCH (08:29)
[2022-03-13] MEDS: METOPROLOL TARTRATE 50 MG TABLET PO SCH (08:29)
[2022-03-13] MEDS: CLOTRIMAZOLE/BETAMET DIPROP CREAM 15 GM TUBE TOP SCH (08:30)
[2022-03-13] MEDS: INSULIN REGULAR, HUMAN 300 UNIT/3 ML VIAL SQ PRN (11:40)
--- NOTE | 2022-03-13 14:26 | NUR ---
1227 Received discharge order to SNF from Dr. Ferris. Patient and aware and agreeable. Patient remains alert, oriented x 3 not in any form of distress on room air. He denies any pain or discomfort. Vital signs stable. Assisted with his needs promptly. Turned and repositioned every 2 hours. Perineal care done. Discharge instructions provided to the patient with verbalized understanding. Discharge papers signed by and given to the patient. All belongings well accounted for. Report given to Yoko from [facility]. 1348 Patient picked up by [facility] transportation transferred via gurney. Patient discharged to [facility].
== END 2022-03-13 13:45 | DRG 177 ==
LOC: UNDOADMIN 14:06
PROVIDERS: ADMIT Physical Medicine & Rehabilitation Pain Medicine; ATTEND Physical Medicine & Rehabilitation Pain Medicine
DX: J69.0 Pneumonitis due to inhalation of food and vomit (principal); G93.41 Metabolic encephalopathy; E43 Unspecified severe protein-calorie malnutrition; I50.33 Acute on chronic diastolic (congestive) heart failure; C77.3 Secondary and unspecified malignant neoplasm of axilla and upper limb lymph nodes; C16.9 Malignant neoplasm of stomach, unspecified; C79.51 Secondary malignant neoplasm of bone; D68.59 Other primary thrombophilia; A04.8 Other specified bacterial intestinal infections; D69.6 Thrombocytopenia, unspecified; E11.9 Type 2 diabetes mellitus without complications; E66.01 Morbid (severe) obesity due to excess calories; E78.5 Hyperlipidemia, unspecified; E83.52 Hypercalcemia; E88.09 Other disorders of plasma-protein metabolism, not elsewhere classified; F03.90 Unspecified dementia, unspecified severity, without behavioral disturbance, psychotic disturbance, mood disturbance, and anxiety; I11.0 Hypertensive heart disease with heart failure; I48.91 Unspecified atrial fibrillation; Z79.01 Long term (current) use of anticoagulants; K21.9 Gastro-esophageal reflux disease without esophagitis; E11.65 Type 2 diabetes mellitus with hyperglycemia; F32.A Depression, unspecified; F41.9 Anxiety disorder, unspecified; I25.10 Atherosclerotic heart disease of native coronary artery without angina pectoris; I70.0 Atherosclerosis of aorta; L30.4 Erythema intertrigo; R13.10 Dysphagia, unspecified; Z68.35 Body mass index [BMI] 35.0-35.9, adult
CPT/HCPCS: 36415; 70030-TC; 71045; 83735; 84100; 84443; 85025; 97161; 97535-GO-CO; A4663; A6209; A6213; J1815; J2920; J7509; Q0144

== ENCOUNTER 2022-03-02 08:57 | Day surgery (SDC) | payer MEDICARE, OTHER ==
[~2022-03-02 08:57] MED LIST: ACET-2154 PO; ASPI-618 PO; AZIT500V8 IV; BLOO-668 IN; CEFT2VIA14 IV; DONE10TA11 PO; ESCI5TAB PO; FURO-152 PO; LOSA25TA3 PO; MAG30ORA PO; MAGN400O6 PO; MEMA10TA PO; METF-441 PO; METO50TA16 PO; NAPH1POW3 PO; ONDA4VIA52 IV; PANT40TA2 PO; RIVA20TA PO
[2022-03-02] MEDS ORDERED: LIDOCAINE-MPF 2% 5 ML VIAL IJ ONE (08:58)
[2022-03-02] MEDS ORDERED: PROPOFOL 200 MG/20 ML BOTTLE IV ONE (08:58)
== END 2022-03-02 11:35 | disposition still patient (30) ==
LOC: DS 08:57
PROVIDERS: ATTEND Registered Nurse
DX: D64.9 Anemia, unspecified (principal); K29.50 Unspecified chronic gastritis without bleeding; C16.9 Malignant neoplasm of stomach, unspecified; K31.89 Other diseases of stomach and duodenum; Z79.82 Long term (current) use of aspirin; Z79.84 Long term (current) use of oral hypoglycemic drugs; Z79.899 Other long term (current) drug therapy; Z98.890 Other specified postprocedural states
CPT/HCPCS: 43239; J3490